=== PATIENT | male | born 1975 | race Caucasian/White ===

== ENCOUNTER 2019-05-27 10:37 | Emergency (ER) | payer OTHER, SELFPAY ==
[2019-05-27 10:51] VITALS: BP 157/86; PULSE 83; RESP 18; TEMP 37.1; O2SAT 100
--- NOTE | 2019-05-27 11:39 | ED.URI ---
HPI - URI/Sore Throat General Chief Complaint: Upper Respiratory Infection Stated Complaint: Congestion,Cough Time Seen by Provider: 05/27/19 11:39 Source: patient and RN notes reviewed Mode of arrival: ambulatory Limitations: no limitations History of Present Illness HPI Narrative: 43 year old male who presents to [facility] with complaints of 10 days history of non productive nagging cough. Patient states that it hurts to take a deep breath, denies any acute shortness of breath, denies any recent travel, fevers, sinus congestion or acute drainage. Patient states that his back, ribs, head and neck ache from his frequent cough. Patient states that he has not slept well in days due to cough preventing him from sleeping. MD elicited complaint: cough Pertinent past history: other (bronchitis) Onset (ago): day(s) (10) Consistency: constant Severity: mild Description of mucous: clear (nasal, no productivity of cough) Able to tolerate fluids by mouth: Yes Exacerbating factors: exertion and other (supine position) Relieving factors: nothing Associated symptoms: myalgias, headache, rhinorrhea, cough and other (pain to back, ribs, neck and headache from cough) Treatments prior to arrival: other (Mucinex) Related Data Home Medications Medication Instructions Recorded Confirmed lisinopril 20 mg PO DAILY 05/27/19 05/27/19 omeprazole 20 mg PO DAILY 05/27/19 05/27/19 Allergies Allergy/AdvReac Type Severity Reaction Status Date / Time Penicillins Allergy Unknown Verified 05/27/19 10:54 Review of Systems Review of Systems: Narrative: CONSTITUTIONAL: Denies fever, chills, or sweats. EYES: Denies visual changes, redness, or discharge. ENT: clear scant rhinorrhea, no congestion, sore throat, or otalgia. CARDIOVASCULAR: Denies anterior chest pain, states back pain and rib pain from cough,no palpitations, or edema. RESPIRATORY:Acute cough no dyspnea. GASTROINTESTINAL: Denies abdominal pain, nausea, vomiting, or diarrhea. GENITOURINARY: Denies dysuria or hematuria. SKIN: Denies rash or itching. MUSCULOSKELETAL:positive mid back pain from cough, denies joint pain, or myalgia. NEUROLOGIC:positive headache,no numbness, or weakness. PSYCHIATRIC: Denies anxiety or depression. All systems reviewed & are unremarkable except as noted in HPI and below PMFSH Past Medical History Medical History (Updated 05/28/19 @ 00:00 by Vane Shanks) GERD (gastroesophageal reflux disease) Hypertension Social History Social History (Updated 05/27/19 @ 11:51 by Ade Elliott NP) Smoking status: Never smoker Living arrangements: with family Gender identity (if verbalized by the patient): Male Comments At time of signature, agree with nursing past medical, social history. There is no relevant family history pertinent to the presenting complaint Exam Narrative: Exam Narrative: GENERAL: Well-appearing, well-nourished, and in no acute distress. HEAD: Normocephalic, atraumatic. EYES: PERRLA and EOMI. ENT: Nares mild redness clear rhinorrhea no epistaxis. Mucous membranes moist.TM's normal with good light reflex, throat mild redness with no lesions exudate or tonsil swelling some post nasal drainage. NECK: Supple.no lymphadenopathy CHEST: scattered wheezes on auscultation. No respiratory distress.SAO2 100% on room air, harsh cough HEART: Regular rate and rhythm. No murmur heard. Normal peripheral pulses. ABDOMEN: Soft, nontender, nondistended, normal active bowel sounds. EXTREMITIES: Normal range of motion. No edema. SKIN: Warm, dry, no rash. NEURO: No focal deficits. Alert and oriented x3. Course Vital Signs Vital signs: Vital Signs Temperature 37.1 C 05/27/19 10:51 Pulse Rate 83 05/27/19 10:51 Respiratory Rate 18 05/27/19 10:51 Blood Pressure 157/86 H 05/27/19 10:51 Pulse Oximetry 100 05/27/19 10:51 Temperature 37.1 C 05/27/19 10:51 Pulse Rate 83 05/27/19 10:51 Respiratory Rate 18 05/27/19 10:51 Blood Pres
== END 2019-05-27 12:03 | disposition home or self-care (01) ==
PROVIDERS: Emergency Provider Registered Nurse
DX: J40 Bronchitis, not specified as acute or chronic (principal); K21.9 Gastro-esophageal reflux disease without esophagitis; I10 Essential (primary) hypertension; K22.70 Barrett's esophagus without dysplasia
CPT/HCPCS: 99203; G0463